=== PATIENT | female | born 1995 | race Two or more races ===

== ENCOUNTER 2018-07-24 20:06 | Outpatient (CLI) | payer OTHER ==
[~2018-07-24] VITALS: Ht 152.4 cm; Wt 75.0 kg
[2018-07-24] MEDS ORDERED: PROMETHAZINE 25 MG/ML, 1ML ONE (22:54)
[2018-07-24] MEDS ORDERED: MEPERIDINE/PF 50 MG/ML ONE (22:54)
[2018-07-24] MEDS ORDERED: MEPERIDINE/PF 50 MG/ML IM ONE (23:00)
[2018-07-24] MEDS ORDERED: PROMETHAZINE 25 MG/ML, 1ML IM ONE (23:00)
[2018-07-25] MEDS ORDERED: PREN1TAB60 PO (07:13)
== END 2018-07-24 23:02 | disposition home or self-care (01) ==
LOC: LDOP 20:06
PROVIDERS: ATTEND Student in an Organized Health Care Education/Training Program
DX: O26.893 Other specified pregnancy related conditions, third trimester (principal); Z3A.37 37 weeks gestation of pregnancy
CPT/HCPCS: 59025; 99211; J2175; G0463

== ENCOUNTER 2018-07-25 02:30 | Inpatient (IN) | payer OTHER ==
[~2018-07-25] VITALS: Ht 153.2 cm; Wt 73.0 kg
[2018-07-25] MEDS ORDERED: OXYTOCIN 30U/ 0.9% NaCL 500ML 500 ML IV PRN ×2 (02:36→09:37)
[2018-07-25] MEDS ORDERED: D5%-LACTATED RINGERS 1,000 ML IV SCH (02:36)
[2018-07-25] MEDS ORDERED: OXYTOCIN 30U/ 0.9% NaCL 500ML 500 ML IV ONE (02:36)
[2018-07-25] MEDS ORDERED: MISOPROSTOL 200 MCG TABLET ONE (02:37)
[2018-07-25] MEDS ORDERED: NEWBORN KIT ONE (02:37)
[2018-07-25] MEDS ORDERED: OXYTOCIN 30U/ 0.9% NaCL 500ML 500 ML ONE ×2 (02:38→12:25)
[2018-07-25] MEDS ORDERED: FENTANYL/BUPIV./NS/PF 250 ML EPIDCONT SCH ×2 (02:38→04:23)
[2018-07-25 02:40] VITALS: BP 104/72
[2018-07-25] MEDS: LACTATED RINGERS 1,000 ML IV SCH ×4 (02:40→12:29)
[2018-07-25] MEDS ORDERED: CALCIUM CARBONATE 500 MG TAB.CHEW PO PRN (03:00)
[2018-07-25] MEDS ORDERED: TERBUTALINE 1 MG/ML, 1ML IVPush PRN (03:00)
[2018-07-25] MEDS ORDERED: FENTANYL PF 100 MCG/2ML IVPush PRN (03:00)
[2018-07-25] MEDS ORDERED: ONDANSETRON 2MG/ML, 2ML IVPush PRN ×2 (03:00→04:30)
[2018-07-25] MEDS ORDERED: FENTANYL PF 100 MCG/2ML IV PRN (03:00)
[2018-07-25 03:03] LABS: BASOPHILS # (AUTO) 0.02 x10^3/uL (0-0.1); BASOPHILS % (AUTO) 0 % (0-1); EOSINOPHILS # (AUTO) 0.01 x10^3/uL (0-0.4); EOSINOPHILS % (AUTO) 0 % (1-7); LYMPHOCYTES % (AUTO) 11 % (22-44); MD NO; MEAN CORPUSCULAR HEMOGLOBIN 27.3 pg (27.0-34.8); MEAN CORPUSCULAR HGB CONC 33.6 g/dL (32.4-35.8); MEAN CORPUSCULAR VOLUME 81.3 fL (80-100); MEAN PLATELET VOLUME 9.1 fL (7.4-10.4); MONOCYTES # (AUTO) 0.83 x10^3/uL (0.2-0.8); MONOCYTES % (AUTO) 7 % (2-9); NEUTROPHILS # (AUTO) 9.87 x10^3/uL (1.8-6.8); NEUTROPHILS % (AUTO) 82 % (42-75); PLATELET COUNT 234 x10^3/uL (130-400); RED CELL DISTRIBUTION WIDTH 13.7 % (9.6-15.2)
[2018-07-25] MEDS ORDERED: FENTANYL PF 100 MCG/2ML ONE ×2 (03:20→03:45)
[2018-07-25] MEDS ORDERED: BUPIVACAINE 0.25% ONE (03:45)
[2018-07-25] MEDS ORDERED: LACTATED RINGERS 1,000 ML IVBOLUS PRN (04:30)
[2018-07-25] MEDS ORDERED: EPHEDRINE 50 MG/ML, 1ML IVPush PRN (04:30)
[2018-07-25] MEDS ORDERED: PREN1TAB60 PO (07:13)
[2018-07-25] MEDS ORDERED: IBUPROFEN 600 MG TABLET ONE (10:57)
[2018-07-25] MEDS ORDERED: ONDANSETRON 2MG/ML, 2ML IV PRN (11:00)
[2018-07-25] MEDS ORDERED: MISOPROSTOL 200 MCG TABLET PR PRN (11:00)
[2018-07-25] MEDS ORDERED: METHYLERGONOVINE 0.2 MG/ML IM PRN (11:00)
[2018-07-25] MEDS: IBUPROFEN 600 MG TABLET PO PRN ×3 (11:02→23:21)
[2018-07-25] MEDS ORDERED: METHYLERGONOVINE 0.2 MG/ML IM ONE (11:08)
[2018-07-25] MEDS: OXYTOCIN 30U/ 0.9% NaCL 500ML 500 ML IV SCH ×2 (12:28→20:53)
[2018-07-25 13:00] VITALS: BP 106/71
[2018-07-25 17:00] VITALS: BP 101/67
[2018-07-25 19:30] VITALS: BP 104/70
[2018-07-25] MEDS: DOCUSATE 100 MG CAPSULE PO PRN (19:33)
[2018-07-25] MEDS: OXYcodone/APAP 5/325MG TABLET PO PRN ×2 (19:33→23:21)
[2018-07-25 20:31] LABS: BASOPHILS # (AUTO) 0.02 x10^3/uL (0-0.1); BASOPHILS % (AUTO) 0 % (0-1); EOSINOPHILS # (AUTO) 0.02 x10^3/uL (0-0.4); EOSINOPHILS % (AUTO) 0 % (1-7); LYMPHOCYTES # (AUTO) 1.34 x10^3/uL (1-3.4); LYMPHOCYTES % (AUTO) 9 % (22-44); MD NO; MEAN CORPUSCULAR HGB CONC 32.9 g/dL (32.4-35.8); MEAN PLATELET VOLUME 9.2 fL (7.4-10.4); MONOCYTES # (AUTO) 0.79 x10^3/uL (0.2-0.8); MONOCYTES % (AUTO) 5 % (2-9); NEUTROPHILS # (AUTO) 12.74 x10^3/uL (1.8-6.8); NEUTROPHILS % (AUTO) 86 % (42-75); PLATELET COUNT 249 x10^3/uL (130-400); RED BLOOD COUNT 4.04 x10^6/uL (3.82-5.3); RED CELL DISTRIBUTION WIDTH 13.8 % (9.6-15.2)
[2018-07-25 23:35] VITALS: BP 104/70
[2018-07-26 04:00] VITALS: BP 95/61
[2018-07-26] MEDS: OXYcodone/APAP 5/325MG TABLET PO PRN ×4 (04:05→17:06)
[2018-07-26] MEDS: IBUPROFEN 600 MG TABLET PO PRN ×2 (05:38→12:35)
[2018-07-26] MEDS: OXYTOCIN 30U/ 0.9% NaCL 500ML 500 ML IV SCH ×2 (06:53→16:53)
[2018-07-26] MEDS ORDERED: LIDOCAINE-MPF 1%, 2ML ONE (07:47)
[2018-07-26] MEDS: DOCUSATE 100 MG CAPSULE PO PRN (07:54)
[2018-07-26 08:25] VITALS: BP 102/70
[2018-07-26] MEDS ORDERED: PRENATAL VIT/IRON/FA 1 EACH TABLET PO SCH (09:00)
[2018-07-26] MEDS ORDERED: IBUP-1222 PO (09:45)
== END 2018-07-26 17:30 | disposition home or self-care (01) | DRG 807 ==
LOC: LDOP 02:30 → LDIP 02:40 → 2NW 12:47
PROVIDERS: ADMIT Student in an Organized Health Care Education/Training Program; ATTEND Student in an Organized Health Care Education/Training Program
PROC: 10E0XZZ Delivery of Products of Conception, External Approach (ICD-10-PCS; principal; 2018-07-25)
PROC: 0KQM0ZZ Repair Perineum Muscle, Open Approach (ICD-10-PCS; 2018-07-25)
PROC: 3E0R3BZ Introduction of Anesthetic Agent into Spinal Canal, Percutaneous Approach (ICD-10-PCS; 2018-07-25)
PROC: 00HU33Z Insertion of Infusion Device into Spinal Canal, Percutaneous Approach (ICD-10-PCS; 2018-07-25)
PROC: 10907ZC Drainage of Amniotic Fluid, Therapeutic from Products of Conception, Via Natural or Artificial Opening (ICD-10-PCS; 2018-07-25)
DX: O70.1 Second degree perineal laceration during delivery (principal); Z37.0 Single live birth; Z3A.37 37 weeks gestation of pregnancy; O62.2 Other uterine inertia
CPT/HCPCS: 36415; 85025; 86850; 86900; G0378; J3010; J3490; J2210; J2590; J7120